=== PATIENT | female | born 1945 | race Caucasian/White ===

== ENCOUNTER 2017-01-11 22:54 | Inpatient (IN) | payer OTHER, MEDICARE ==
[~2017-01-11] VITALS: Ht 162.6 cm; Wt 45.8 kg
[2017-01-12] VITALS (7 sets, daily range): BP systolic 127–169; BP diastolic 52–73
[2017-01-12 02:32] LABS: BASOPHIL % 3.8 % (0-2); PLATELET COUNT 231 x10^3mcL (130-400); RED CELL DISTRIBUTION WIDTH 13.6 % (11.5-14.5)
[2017-01-12 02:37] LABS: CALCIUM 8.8 mg/dL (8.5-10.1); CARBON DIOXIDE 28.1 mmol/L (21-32); CHLORIDE SERUM 90 mmol/L (98-107); CREATININE SERUM 0.6 mg/dL (0.6-1.0); GFR1 > 60 mL/min; GLUCOSE SERUM 108 mg/dL (74-106); POTASSIUM SERUM 3.9 mmol/L (3.5-5.1); SODIUM SERUM 126 mmol/L (136-145)
[2017-01-12 02:42] LABS: ALBUMIN 3.6 g/dL (3.4-5.0); ALKALINE PHOSPHATASE 88 U/L (46-116); ALT/SGPT 16 U/L (14-59); AST/SGOT 15 U/L (15-37); BILIRUBIN TOTAL 0.47 mg/dL (0.20-1.00); TOTAL PROTEIN, SERUM 7.6 g/dL (6.4-8.2)
[2017-01-12 02:50] LABS: CK-MB 0.6 ng/mL (0-3.6)
[2017-01-12] MEDS ORDERED: COLACE100 MG PO (05:18)
[2017-01-12] MEDS ORDERED: XANAX2 MG PO (05:18)
[2017-01-12 05:50] LABS: MAGNESIUM 1.9 mg/dL (1.8-2.4); PHOSPHOROUS 4.3 mg/dL (2.5-4.9)
[2017-01-12 05:58] LABS: T3 TOTAL 1.18 ng/mL
[2017-01-12 05:59] LABS: FREE T4 1.11 ng/dL (0.76-1.46); FREE THYROXINE INDEX 2.7 ug/dL (1.4-4.5); T4(THYROXINE) 7.6 ug/dL (4.7-13.3)
[2017-01-12 10:20] LABS: AMPHETAMINE QUAL UR NONE DETECTED (NEG <=1000)
[2017-01-12 11:05] LABS: UA SPECIFIC GRAVITY <=1.005 (1.005-1.035); microscopic required? YES; urine erythrocyte TRACE (NEGATIVE)
[2017-01-13 05:29] VITALS: BP 157/62
[2017-01-13 06:14] LABS: BASOPHIL % 0.1 % (0-2); PLATELET COUNT 208 x10^3mcL (130-400)
[2017-01-13 06:28] LABS: CALCIUM 7.8 mg/dL (8.5-10.1); CARBON DIOXIDE 26.9 mmol/L (21-32); CHLORIDE SERUM 101 mmol/L (98-107); CREATININE SERUM 0.4 mg/dL (0.6-1.0); GFR1 > 60 mL/min; GLUCOSE SERUM 91 mg/dL (74-106); SODIUM SERUM 129 mmol/L (136-145)
[2017-01-13 06:35] LABS: RED CELL DISTRIBUTION WIDTH 14.9 % (11.5-14.5)
[2017-01-13 09:52] VITALS: BP 172/76
[2017-01-13 13:55] VITALS: BP 160/57
[2017-01-13 17:12] VITALS: BP 149/66
[2017-01-13 21:12] VITALS: BP 150/60
[2017-01-14 05:30] VITALS: BP 155/67
[2017-01-14 06:49] LABS: BASOPHIL % 0.3 % (0-2); PLATELET COUNT 197 x10^3mcL (130-400); RED CELL DISTRIBUTION WIDTH 14.3 % (11.5-14.5)
[2017-01-14 07:19] LABS: CALCIUM 8.3 mg/dL (8.5-10.1); CARBON DIOXIDE 24.3 mmol/L (21-32); CHLORIDE SERUM 99 mmol/L (98-107); CREATININE SERUM 0.4 mg/dL (0.6-1.0); GFR1 > 60 mL/min; GLUCOSE SERUM 93 mg/dL (74-106); MAGNESIUM 1.8 mg/dL (1.8-2.4); PHOSPHOROUS 3.7 mg/dL (2.5-4.9); POTASSIUM SERUM 3.6 mmol/L (3.5-5.1); SODIUM SERUM 131 mmol/L (136-145)
[2017-01-14 09:02] VITALS: BP 155/67
[2017-01-14 09:53] VITALS: BP 145/75
[2017-01-14] MEDS ORDERED: NOR5 PO (11:18)
[2017-01-14] MEDS ORDERED: COLACE100 MG PO (11:31)
== END 2017-01-14 13:30 | disposition home or self-care (01) | DRG 254 ==
LOC: ED 22:54 → MU 01-12 05:06 → DU 01-12 05:06 → MU 01-13 09:40
PROVIDERS: Emergency Medicine; Family Medicine; ADMIT Family Medicine
DX: K64.4 Residual hemorrhoidal skin tags (principal); G92 Toxic encephalopathy; E87.8 Other disorders of electrolyte and fluid balance, not elsewhere classified; E87.1 Hypo-osmolality and hyponatremia; D64.9 Anemia, unspecified; K59.09 Other constipation; F17.210 Nicotine dependence, cigarettes, uncomplicated; H91.92 Unspecified hearing loss, left ear; F32.9 Major depressive disorder, single episode, unspecified; F10.20 Alcohol dependence, uncomplicated; Y90.9 Presence of alcohol in blood, level not specified; F41.1 Generalized anxiety disorder; M19.90 Unspecified osteoarthritis, unspecified site; K21.9 Gastro-esophageal reflux disease without esophagitis; Z98.51 Tubal ligation status; Z79.899 Other long term (current) drug therapy; Z83.3 Family history of diabetes mellitus; Z82.49 Family history of ischemic heart disease and other diseases of the circulatory system
CPT/HCPCS: 83880; 84439; 87046; 87046-59; G0480; J7030

== ENCOUNTER 2017-03-22 19:31 | Emergency (ER) | payer MEDICARE, OTHER ==
[~2017-03-22 19:31] MED LIST: COLACE100 MG PO; NOR5 PO; XANAX2 MG PO
[2017-03-22 21:28] LABS: BASOPHIL % 0.1 % (0-2); PLATELET COUNT 178 x10^3mcL (130-400)
[2017-03-22 21:32] LABS: RED CELL DISTRIBUTION WIDTH 16.2 % (11.5-14.5)
[2017-03-22 21:58] LABS: CALCIUM 8.6 mg/dL (8.5-10.1); CARBON DIOXIDE 29.7 mmol/L (21-32); CHLORIDE SERUM 106 mmol/L (98-107); CREATININE SERUM 0.6 mg/dL (0.6-1.0); GFR1 > 60 mL/min; GLUCOSE SERUM 116 mg/dL (74-106); SODIUM SERUM 142 mmol/L (136-145)
[2017-03-22 22:10] LABS: CK-MB 1.2 ng/mL (0-3.6)
[2017-03-22 22:11] LABS: T3 TOTAL 1.54 ng/mL
[2017-03-22 22:13] LABS: FREE T4 1.21 ng/dL (0.76-1.46); FREE THYROXINE INDEX 3.6 ug/dL (1.4-4.5); T4(THYROXINE) 10.9 ug/dL (4.7-13.3)
[2017-03-22 22:14] LABS: ERYTHROCYTE SED RATE 50 mm/hr (0-30)
[2017-03-22 22:33] LABS: ALKALINE PHOSPHATASE 67 U/L (46-116); ALT/SGPT 19 U/L (14-59); AST/SGOT 16 U/L (15-37); BILIRUBIN TOTAL 0.54 mg/dL (0.20-1.00); TOTAL PROTEIN, SERUM 6.7 g/dL (6.4-8.2)
[2017-03-22 22:37] LABS: C REACTIVE PROTEIN < 0.2 mg/dL (<=0.9)
[2017-03-22 23:20] VITALS: BP 129/63
[2017-03-23 00:17] LABS: UA SPECIFIC GRAVITY 1.015 (1.005-1.035); microscopic required? YES; urine erythrocyte NEGATIVE (NEGATIVE)
== END 2017-03-22 23:20 | disposition home or self-care (01) ==
LOC: ED 19:31
PROVIDERS: Specialist
DX: K59.00 Constipation, unspecified (principal); K62.89 Other specified diseases of anus and rectum; R06.02 Shortness of breath; M79.604 Pain in right leg; M79.605 Pain in left leg
CPT/HCPCS: 36415; 36600; 83880; 84439